=== PATIENT | male | born 1980 | race Two or more races ===

== ENCOUNTER 2020-12-18 07:07 | Emergency (ER) | payer MEDICAID ==
[~2020-12-18] VITALS: Ht 167.6 cm; Wt 65.3 kg
[2020-12-18 07:07] VITALS: BP 126/86
--- NOTE | 2020-12-18 07:34 | NUR ---
PER PT HE DOESNT WANT TO STAY WANTS TO BE DISCHARGE HOME. DR PERRY AWARE.
--- NOTE | 2020-12-18 07:40 | NUR ---
PT ABLE TO AMBULATE STRAIGHT WITHOUT ASSISTANCE SEEN BY .
--- NOTE | 2020-12-18 08:50 | NUR ---
PER PT HE WILL WAIT AT THE BESIDE FOR HIS RIDE.
--- NOTE | 2020-12-18 13:36 | NUR ---
Patient does not wish to proceed with medical care recommended by Dr. Cox. Patient given information related to possible complications, up to and including , which could occur as a result of leaving the hospital at this time. Patient verbalizes understanding of risks involved due to leaving against medical advice. Patient has signed AMA form.
== END 2020-12-18 13:37 | disposition left against medical advice (07) ==
LOC: ER 07:11 → EDBD 07:11 → ER 13:37
DX: F10.129 Alcohol abuse with intoxication, unspecified (principal); Z98.890 Other specified postprocedural states; Y90.9 Presence of alcohol in blood, level not specified